=== PATIENT | female | born 1950 | race Caucasian/White ===

== ENCOUNTER 2017-01-13 10:01 | Day surgery (SDC) | payer OTHER ==
[~2017-01-13] VITALS: Ht 167.6 cm; Wt 72.6 kg
[~2017-01-13 10:01] MED LIST: 0.9% Sodium Chloride 1,000 ML IV SCH; ESTR0.5T; LEVO50TA39 PO; MEDR2.5T7 PO; MONT10TA23 PO; Sodium Chloride LOK Flush 10 mL Syringe IV PRN; fentaNYL-PF 50 mCg/mL 2 mL Inj IVPUSH PRN
[2017-01-13 10:20] VITALS: BP 140/63; PULSE 75; RESP 14; O2SAT 100
[2017-01-13] MEDS ORDERED: NITR25CA2 PO (10:24)
--- NOTE | 2017-01-13 11:15 | PCM.ENDCOL ---
Colonoscopy Date of Service: Jan 13, 2017 Physician Shane Owens MD Pre Procedure Diagnosis: Screening history of diverticulitis Post Procedure Dx & Findings: Polyp hemorrhoids diverticula Procedure Colonoscopy PROCEDURE IN DETAIL: Prep adequate Withdrawal time 10 minutes After unremarkable rectal examination the Olympus video colonoscope was inserted patient's anal canal and was advanced to cecum. Landmarks were identified including the ileocecal valve and appendiceal orifice. Scope was withdrawn systematically. Visualized colonic mucosa showed healthy shiny mucosa with normal healthy-appearing vasculature. In the transverse colon, there was 1 mm polyp which was removed completely using cold forceps. In the distal transverse colon to the distal sigmoid colon , diverticulosis noted. Multiple medium size noted. Mostly they were in the sigmoid colon. In the rectum retroflexion was done which showed hemorrhoids. Anal canal was inspected carefully on the way out and hemorrhoids noted. Impression Polyp 1 status post complete removal Diverticulosis Hemorrhoids Recommendation Repeat colonoscopy in 5 years Diverticular diet Presedation Assessment Risks and Benefits Informed consent was obtained from the patient after all risks and benefits including but not limited to drug reaction, infection, pain, bleeding, perforation, as well as alternatives were discussed. Patient monitoring Continuous pulse oximetry, cardiac monitoring, blood pressure monitoring, IV access, and oxygen at 2L per nasal cannula. Periprocedural Fentanyl: Fentanyl 150mcg Incrementally Midazolam: Midazolam 7mg Incrementally Complications There were no periprocedural complications identified. Post Procedure Plan Post Procedure Recommendations 1. Restrict activities today. 2. Resume normal activities in the morning. 3. Resume medications. 4. Patient informed of normal post procedure side effects as bloating, drowsiness, blood streaking in the stool. 5. average risk CRCS. If colon polyps come back as: -Hyperplastic- can repeat colonoscopy in 10 years -Tubular adenoma- repeat colonoscopy in 5 years -Tubulovillous/villous adenoma- repeat colonoscopy in 3 years -If any dysplasia- return to clinic as soon as possible 6. Please don't hesitate to call me with any questions. Shane Owens MD Jan 13, 2017 11:15
[2017-01-13 11:18] VITALS: BP 120/63; PULSE 76; RESP 14; O2SAT 97
[2017-01-13 11:28] VITALS: BP 127/62; PULSE 78; RESP 14; O2SAT 100
--- NOTE | 2017-01-14 10:43 | PATH ---
SURGICAL PATHOLOGY Attending Physician:Shane Owens M.D. CASE STATUS: Signed Out PATIENT NAME: RONAL GR PID: [id number] : 11/11/1952 DATE COLLECTED:01/13/2017 21:41 SPECIMEN: Colon, Polyp CLINICAL HISTORY: 1). TRANSVERSE POLYP X1 FINAL DIAGNOSIS: 1.TRANSVERSE COLON POLYP: SINGLE FRAGMENT OF SUPERFICIAL COLON MUCOS[place] NEGATIVE FOR EVIDENCE OF NEOPLASM AND/OR HYPERPLASIA. ICD10 K63.5 GROSS DESCRIPTION: The specimen is received in one formalin filled container labeled with the patient's name, sublabeled "transverse polyp" and consists of a 0.4 x 0.3 x 0.2 CM portion of tissue which is entirely submitted in one cassette. 01/13/2017 DAC MICRO DESCRIPTION: See diagnosis. ICD-9 CODES: CPT CODES: 1: 53540 Electronically Signed Out Ruben Cortes MD [facility] [address], [place] [address] Technical component performed at [facility], [facility] [address], [address]
== END 2017-01-13 23:59 | disposition home or self-care (01) ==
LOC: END 10:01
PROVIDERS: ATTEND Internal Medicine
DX: Z12.11 Encounter for screening for malignant neoplasm of colon (principal); K63.5 Polyp of colon; K57.32 Diverticulitis of large intestine without perforation or abscess without bleeding; K64.9 Unspecified hemorrhoids; Z79.890 Hormone replacement therapy; J45.909 Unspecified asthma, uncomplicated
CPT/HCPCS: 45380; 99153; G0500; J2250; J3010; J7030